=== PATIENT | male | born 1945 | race Caucasian/White ===

== ENCOUNTER 2020-10-21 05:50 | Day surgery (SDC) | payer MEDICARE ==
[~2020-10-21] VITALS: Ht 175.3 cm; Wt 86.2 kg
[~2020-10-21 05:50] MED LIST: BACTROBAN2 % EX; CEPHALEXIN500 MG OR; NAPROSYN500 MG OR; NO MEDS; PROTONIX40 M2 PO
[2020-10-21 07:56] VITALS: BP 155/88
== END 2020-10-21 08:05 | disposition home or self-care (01) ==
LOC: ENDO 05:50 → ORM 08:00 → ENDO 08:05 → ORM 11:45
PROVIDERS: ATTEND Surgery
PROC: 0DBF8ZX Excision of Right Large Intestine, Via Natural or Artificial Opening Endoscopic, Diagnostic (ICD-10-PCS; principal; 2020-10-21)
PROC: 0DBN8ZX Excision of Sigmoid Colon, Via Natural or Artificial Opening Endoscopic, Diagnostic (ICD-10-PCS; 2020-10-21)
PROC: 0DBL8ZX Excision of Transverse Colon, Via Natural or Artificial Opening Endoscopic, Diagnostic (ICD-10-PCS; 2020-10-21)
PROC: 0DB18ZX Excision of Upper Esophagus, Via Natural or Artificial Opening Endoscopic, Diagnostic (ICD-10-PCS; 2020-10-21)
PROC: 0DB48ZX Excision of Esophagogastric Junction, Via Natural or Artificial Opening Endoscopic, Diagnostic (ICD-10-PCS; 2020-10-21)
DX: Z12.11 Encounter for screening for malignant neoplasm of colon (principal); K57.30 Diverticulosis of large intestine without perforation or abscess without bleeding; D12.3 Benign neoplasm of transverse colon; D12.2 Benign neoplasm of ascending colon; D12.5 Benign neoplasm of sigmoid colon; K63.5 Polyp of colon; K21.9 Gastro-esophageal reflux disease without esophagitis; K44.9 Diaphragmatic hernia without obstruction or gangrene; K22.70 Barrett's esophagus without dysplasia; Z87.891 Personal history of nicotine dependence

== ENCOUNTER 2021-12-24 10:42 | Day surgery (SDC) | payer MEDICARE ==
[~2021-12-24] VITALS: Ht 175.3 cm; Wt 88.5 kg
[2021-12-24 13:49] VITALS: BP 125/84
== END 2021-12-24 14:10 | disposition home or self-care (01) ==
LOC: ENDO 10:42
PROVIDERS: ATTEND Surgery
PROC: 0DBM8ZX Excision of Descending Colon, Via Natural or Artificial Opening Endoscopic, Diagnostic (ICD-10-PCS; principal; 2021-12-24)
PROC: 0DBL8ZX Excision of Transverse Colon, Via Natural or Artificial Opening Endoscopic, Diagnostic (ICD-10-PCS; 2021-12-24)
DX: Z12.11 Encounter for screening for malignant neoplasm of colon (principal); D12.3 Benign neoplasm of transverse colon; D12.4 Benign neoplasm of descending colon; K63.5 Polyp of colon; K57.30 Diverticulosis of large intestine without perforation or abscess without bleeding; K21.9 Gastro-esophageal reflux disease without esophagitis; Z87.891 Personal history of nicotine dependence

== ENCOUNTER 2022-05-07 06:12 | Day surgery (SDC) | payer MEDICARE ==
[~2022-05-07] VITALS: Ht 175.3 cm; Wt 84.9 kg
[~2022-05-07 06:12] MED LIST changes: +PRAVASTATIN20 MG PO
[2022-05-07 09:33] VITALS: BP 136/75
== END 2022-05-07 09:18 | disposition home or self-care (01) ==
LOC: ORM 06:12
PROVIDERS: ATTEND Urology
PROC: 0VB03ZX Excision of Prostate, Percutaneous Approach, Diagnostic (ICD-10-PCS; principal; 2022-05-07)
PROC: BV49ZZZ Ultrasonography of Prostate and Seminal Vesicles (ICD-10-PCS; 2022-05-07)
DX: N40.1 Benign prostatic hyperplasia with lower urinary tract symptoms (principal); N13.8 Other obstructive and reflux uropathy; K21.9 Gastro-esophageal reflux disease without esophagitis; E78.2 Mixed hyperlipidemia; K59.09 Other constipation; G62.9 Polyneuropathy, unspecified; Z87.891 Personal history of nicotine dependence; Z86.010 Personal history of colon polyps

== ENCOUNTER 2022-05-10 04:06 | Inpatient (IN) | payer MEDICARE ==
[2022-05-10] VITALS (30 sets, daily range): BP systolic 87–139; BP diastolic 49–80
[~2022-05-10] VITALS: Ht 175.3 cm; Wt 83.4 kg
[2022-05-10 04:46] LABS: IMMATURE GRANULOCYTES 0.3 % (0.0-5.0); MEAN CELL VOLUME 88.6 fL CALC (80.0-100.0); NEUT# 8.44 thou/uL (1.82-7.42); RED BLOOD COUNT 4.13 mill/uL (4.70-6.10); RED CELL DISTRI WIDTH 13.8 % (11.5-15.5)
[2022-05-10 04:47] LABS: HEMATOCRIT 36.6 % (39.0-50.0); HEMOGLOBIN 12.8 g/dl (14.0-18.0)
[2022-05-10 05:01] LABS: ALBUMIN 3.4 g/dL (3.2-5.0); ALKALINE PHOSPHATASE 78 u/l (38-126); ANION GAP 11 (6-22 (CALC)); BILIRUBIN, TOTAL 1.3 mg/dL (0.0-1.4); BUN 12 mg/dL (8-23); BUN/CREATININE RATIO 16 (12-20 (CALC)); CHLORIDE 107 mmol/l (95-108); CREATININE 0.7 mg/dL (0.7-1.3); GFR FOR AFR.AMER. > 60 ML/MIN (>=60 (CALC)); GFR OTHER RACES > 60 ML/MIN (>=60 (CALC)); POTASSIUM 3.6 mmol/l (3.5-5.1); SGOT/AST 27 u/l (19-48); SODIUM 135 mmol/l (137-146); TOTAL PROTEIN 6.4 g/dL (6.3-8.2)
[2022-05-10 05:02] LABS: CARBON DIOXIDE 21 mmol/l (22-30)
[2022-05-10 05:15] LABS: URINE BLOOD DIPSTICK MODERATE (NEGATIVE); URINE COLOR YELLOW; URINE GLUCOSE - DIPSTICK NEGATIVE (NEGATIVE); URINE KETONE 40 mg/dL (NEGATIVE); URINE PROTEIN - DIPSTICK 30 mg/dL (NEG-TRACE); URINE SPECIFIC GRAVITY >=1.030
[2022-05-10 05:31] LABS: URINE BILIRUBIN - DIPSTICK NEGATIVE (NEGATIVE); URINE LEUK ESTERASE MODERATE (NEGATIVE); URINE NITRITE - DIPSTICK POSITIVE (Negative); URINE RBC 25-50 RBC/hpf (0-5); URINE WBC 50-100 WBC/hpf (0-5)
[2022-05-10 05:32] LABS: URINE BACTERIA MANY hpf; URINE EPITHELIAL CELLS FEW EPI/hpf (0-FEW)
[2022-05-10] MEDS ORDERED: CIPROFLOXACN500 MG PO (08:51)
[2022-05-10] MEDS ORDERED: METRONIDAZOLE500 MG PO (08:51)
[2022-05-10] MEDS ORDERED: ZOFRAN4 MG/TAB PO (08:51)
[2022-05-11 00:39] VITALS: BP 126/80
[2022-05-11 06:11] VITALS: BP 111/63
[2022-05-11 07:14] LABS: HEMATOCRIT 36.3 % (39.0-50.0); HEMOGLOBIN 12.5 g/dl (14.0-18.0); IMMATURE GRANULOCYTES 0.1 % (0.0-5.0); MEAN CELL VOLUME 90.5 fL CALC (80.0-100.0); MEAN CORPUSCULAR HGB 31.2 pG CALC (26.0-32.0); MEAN CORPUSCULAR HGB CONC 34.4 g/dL CAL (32.0-36.0); NEUT# 6.71 thou/uL (1.82-7.42); RED BLOOD COUNT 4.01 mill/uL (4.70-6.10)
[2022-05-11 07:37] LABS: ALBUMIN 3.2 g/dL (3.2-5.0); ALKALINE PHOSPHATASE 83 u/l (38-126); ANION GAP 11 (6-22 (CALC)); BILIRUBIN, TOTAL 0.9 mg/dL (0.0-1.4); BUN 8 mg/dL (8-23); BUN/CREATININE RATIO 10 (12-20 (CALC)); CARBON DIOXIDE 25 mmol/l (22-30); CHLORIDE 105 mmol/l (95-108); CREATININE 0.8 mg/dL (0.7-1.3); GFR FOR AFR.AMER. > 60 ML/MIN (>=60 (CALC)); GFR OTHER RACES > 60 ML/MIN (>=60 (CALC)); POTASSIUM 4.2 mmol/l (3.5-5.1); SGOT/AST 28 u/l (19-48); SODIUM 137 mmol/l (137-146); TOTAL PROTEIN 6.2 g/dL (6.3-8.2)
[2022-05-11 15:31] VITALS: BP 148/89
[2022-05-11 19:00] VITALS: BP 112/74
[2022-05-11 19:15] VITALS: BP 112/74
[2022-05-12] VITALS (8 sets, daily range): BP systolic 112–134; BP diastolic 69–80
[2022-05-12 05:46] LABS: HEMATOCRIT 37.2 % (39.0-50.0); HEMOGLOBIN 12.9 g/dl (14.0-18.0); IMMATURE GRANULOCYTES 0.2 % (0.0-5.0); MEAN CELL VOLUME 89.2 fL CALC (80.0-100.0); MEAN CORPUSCULAR HGB 30.9 pG CALC (26.0-32.0); MEAN CORPUSCULAR HGB CONC 34.7 g/dL CAL (32.0-36.0); NEUT# 6.62 thou/uL (1.82-7.42); RED BLOOD COUNT 4.17 mill/uL (4.70-6.10); RED CELL DISTRI WIDTH 13.8 % (11.5-15.5)
[2022-05-12 06:12] LABS: ALKALINE PHOSPHATASE 108 u/l (38-126); ANION GAP 8 (6-22 (CALC)); BILIRUBIN, TOTAL 0.9 mg/dL (0.0-1.4); BUN 7 mg/dL (8-23); BUN/CREATININE RATIO 10 (12-20 (CALC)); CARBON DIOXIDE 26 mmol/l (22-30); CHLORIDE 104 mmol/l (95-108); CREATININE 0.7 mg/dL (0.7-1.3); GFR FOR AFR.AMER. > 60 ML/MIN (>=60 (CALC)); GFR OTHER RACES > 60 ML/MIN (>=60 (CALC)); POTASSIUM 3.5 mmol/l (3.5-5.1); SGOT/AST 35 u/l (19-48); SODIUM 135 mmol/l (137-146); TOTAL PROTEIN 6.1 g/dL (6.3-8.2)
[2022-05-13] VITALS: BP 132/71
[2022-05-13 00:04] VITALS: BP 132/71
[2022-05-13 04:00] VITALS: BP 132/79
[2022-05-13 05:59] LABS: HEMATOCRIT 35.6 % (39.0-50.0); HEMOGLOBIN 12.4 g/dl (14.0-18.0); IMMATURE GRANULOCYTES 0.6 % (0.0-5.0); MEAN CORPUSCULAR HGB CONC 34.8 g/dL CAL (32.0-36.0); NEUT# 4.55 thou/uL (1.82-7.42); RED CELL DISTRI WIDTH 13.8 % (11.5-15.5)
[2022-05-13 06:23] LABS: ALBUMIN 3.2 g/dL (3.2-5.0); ALKALINE PHOSPHATASE 117 u/l (38-126); BILIRUBIN, TOTAL 0.7 mg/dL (0.0-1.4); BUN 10 mg/dL (8-23); BUN/CREATININE RATIO 15 (12-20 (CALC)); CARBON DIOXIDE 28 mmol/l (22-30); CHLORIDE 108 mmol/l (95-108); CREATININE 0.7 mg/dL (0.7-1.3); GFR FOR AFR.AMER. > 60 ML/MIN (>=60 (CALC)); GFR OTHER RACES > 60 ML/MIN (>=60 (CALC)); MAGNESIUM 2.4 mg/dL (1.6-2.3); POTASSIUM 3.6 mmol/l (3.5-5.1); SGOT/AST 37 u/l (19-48); TOTAL PROTEIN 6.3 g/dL (6.3-8.2)
[2022-05-13 06:32] LABS: ANION GAP 11 (6-22 (CALC)); SODIUM 143 mmol/l (137-146)
[2022-05-13 06:50] VITALS: BP 112/70
[2022-05-13 10:49] VITALS: BP 134/82
[2022-05-13] MEDS ORDERED: METRONIDAZOLE500 MG PO (11:14)
[2022-05-13] MEDS ORDERED: LEVAQUIN750 M1 PO (11:15)
[2022-05-13 14:15] VITALS: BP 115/73
== END 2022-05-13 15:55 | disposition home or self-care (01) | DRG 863 ==
LOC: ED 04:06 → ED-I 04:35 → ED 09:16 → MS2 09:17
PROVIDERS: Emergency Medicine; Nurse Practitioner Family; ADMIT Internal Medicine; ATTEND Internal Medicine
PROC: 0T9B70Z Drainage of Bladder with Drainage Device, Via Natural or Artificial Opening (ICD-10-PCS; principal; 2022-05-10)
DX: T81.40XA Infection following a procedure, unspecified, initial encounter (principal); N39.0 Urinary tract infection, site not specified; K57.32 Diverticulitis of large intestine without perforation or abscess without bleeding; R78.81 Bacteremia; N41.9 Inflammatory disease of prostate, unspecified; R33.9 Retention of urine, unspecified; I95.9 Hypotension, unspecified; K21.9 Gastro-esophageal reflux disease without esophagitis; E78.5 Hyperlipidemia, unspecified; R97.20 Elevated prostate specific antigen [PSA]; B96.20 Unspecified Escherichia coli [E. coli] as the cause of diseases classified elsewhere; Y84.8 Other medical procedures as the cause of abnormal reaction of the patient, or of later complication, without mention of misadventure at the time of the procedure; Z98.890 Other specified postprocedural states
CPT/HCPCS: G0378; J0692; J1650; Q9967

== ENCOUNTER 2022-05-13 21:11 | Observation (INO) | payer MEDICARE ==
[~2022-05-13] VITALS: Ht 175.3 cm; Wt 85.0 kg
[~2022-05-13 21:11] MED LIST changes: +CIPROFLOXACN500 MG PO; +LEVAQUIN750 M1 PO; +METRONIDAZOLE500 MG PO; +ZOFRAN4 MG/TAB PO
[2022-05-13 21:43] VITALS: BP 102/63
[2022-05-13 22:00] VITALS: BP 95/63
[2022-05-13 22:26] LABS: HEMATOCRIT 37.4 % (39.0-50.0); HEMOGLOBIN 13.2 g/dl (14.0-18.0); IMMATURE GRANULOCYTES 1.5 % (0.0-5.0); MEAN CELL VOLUME 86.6 fL CALC (80.0-100.0); MEAN CORPUSCULAR HGB 30.6 pG CALC (26.0-32.0); MEAN CORPUSCULAR HGB CONC 35.3 g/dL CAL (32.0-36.0); NEUT# 11.48 thou/uL (1.82-7.42); RED BLOOD COUNT 4.32 mill/uL (4.70-6.10); RED CELL DISTRI WIDTH 13.6 % (11.5-15.5)
[2022-05-13 22:38] LABS: ALBUMIN 3.2 g/dL (3.2-5.0); BUN 12 mg/dL (8-23); BUN/CREATININE RATIO 18 (12-20 (CALC)); CHLORIDE 104 mmol/l (95-108); CREATININE 0.7 mg/dL (0.7-1.3); GFR FOR AFR.AMER. > 60 ML/MIN (>=60 (CALC)); GFR OTHER RACES > 60 ML/MIN (>=60 (CALC)); MAGNESIUM 1.9 mg/dL (1.6-2.3); POTASSIUM 3.2 mmol/l (3.5-5.1); SODIUM 136 mmol/l (137-146)
[2022-05-13 22:42] LABS: ALKALINE PHOSPHATASE 250 u/l (38-126); ANION GAP 13 (6-22 (CALC)); CARBON DIOXIDE 22 mmol/l (22-30); SGOT/AST 200 u/l (19-48)
[2022-05-13 23:04] LABS: URINE BILIRUBIN - DIPSTICK NEGATIVE (NEGATIVE); URINE BLOOD DIPSTICK MODERATE (NEGATIVE); URINE COLOR YELLOW; URINE GLUCOSE - DIPSTICK NEGATIVE (NEGATIVE); URINE KETONE NEGATIVE (NEGATIVE); URINE LEUK ESTERASE NEGATIVE (NEGATIVE); URINE PROTEIN - DIPSTICK NEGATIVE (NEG-TRACE); URINE SPECIFIC GRAVITY <=1.005; URINE UROBILINOGEN - DIPSTICK 0.2 E.U./dL (0.2)
[2022-05-13 23:13] LABS: URINE NITRITE - DIPSTICK NEGATIVE (Negative)
[2022-05-13 23:15] LABS: URINE SQUAMOUS EPITHELIAL CELL FEW EPI/hpf (0-FEW); URINE WBC 0-2 WBC/hpf (0-5)
--- NOTE | 2022-05-14 00:40 | NUR ---
PT ARRIVED TO [facility] ROOM 279. REPORT RECIEVED FROM ER NURSE. PT A/OX3. RESPIRATIONS EVEN AND UNLABORED ON ROOM AIR. LUNG SOUNDS YINA.R HEART RHYTHM NORMAL. BOWEL SOUNDS ACTIVE. #20G LFA INFUSING WITH IVF PER ORDER. SKIN INTACT. CHING CATH NOTED FROM PREVIOUS ADMISSION, DRAINING PER GRAVITY. PT DENIES OF PAIN OR DISCOMFORTS AT THIS TIME.PT ORIENTED TO ROOM AND CALL LIGHT SYSTEM. ALL SAFTEY PRECAUTIONS ARE IN PLACE WITH CALL LIGHT IN REACH.
[2022-05-14 00:49] VITALS: BP 101/74
--- NOTE | 2022-05-14 00:53 | NUR ---
900ML URINE OUTPUT FROM CHING BAG, CHING BAG EMPTIED. PT IN NAD, A&OX4, VSS. REPORT GIVEN TO SUJEY BASS. PT UPDATED ON PLAN OF CARE.
--- NOTE | 2022-05-14 00:53 | NUR ---
NO LUMBAR PUNCTURE OR NEB TX DONE, UNABLE TO DOCUMENT NOT DONE PER PROVIDER ON FLOWSHEET.
[2022-05-14 04:20] VITALS: BP 110/69
--- NOTE | 2022-05-14 04:21 | NUR ---
PT SLEEPING IN SEMI FOWLERS FOWLERS POSITION. RESPIRATIONS EVEN AND UNLABORED ON ROOM AIR. IV NOTED. CHING CATH DRAINING PER GRAVITY. NO SIGNS OF ANY DISTRESS. ALL SAFTEY PRECAUTIONS ARE IN PLACE WITH CALL LIGHT IN REACH.
[2022-05-14 07:07] VITALS: BP 98/67
--- NOTE | 2022-05-14 07:33 | NUR ---
PT RESTING IN HIGH FOWLERS POSITION.FLEXIBLE BABYSITTER/OX3 ASSESSMENT AND VS COMPLETED. HEART RHYTHM NOT ON TELE. RESPIRATIONS ROOM AIR. IV SITE NOTED TO LFA S.L . PT URINARY CATH IN PLACE. ALL SAFETY PRECAUTIONS IN PLACE CALL LIGHT INREACH.
--- NOTE | 2022-05-14 07:57 | NUR ---
PT TRANSFERED TO ULTRASOUND PER VOLUNTEER.
--- NOTE | 2022-05-14 09:07 | NUR ---
CALLED IN A PHYSICIAN CONSULT FOR DR GIBSON. I SPOKE WITH TANISHA AT 0907 HRS.
--- NOTE | 2022-05-14 13:48 | NUR ---
PT RESTING IN LOW FOWLERS POSITION PT DENIES ADDITIONAL NEEDS AT THE TIEM ALL SAFETY PRECAUTIONS IN PLACE CALL LIGHT INR EACH.
[2022-05-14 15:29] VITALS: BP 128/76
[2022-05-14 15:42] VITALS: BP 128/78
--- NOTE | 2022-05-14 17:18 | NUR ---
PT RESTING IN LOW FOWLERS POSITION PT DENIES ADDITIONAL NEEDS AT THE TIME ALL SAFETY PRECAUTIONS IN PLACE CALL LIGHT INREACH.
--- NOTE | 2022-05-14 18:45 | NUR ---
RECEIVED REPORT FROM XENIA ARAMBULA.
[2022-05-14 18:59] VITALS: BP 139/80
--- NOTE | 2022-05-14 20:20 | NUR ---
PT RESTING ON BED SEMI FOWLERS: A&O X3. EVEN AND UNLABORED RESPIRATIONS; CLEAR LUNG SOUNDS UPON AUSCULTATION. IV SITE FLUSHED: #20G TO LEFT FA, HEALTHY AND PATENT. ACTIVE BOWEL SOUNDS X4 QUADRANTS. CHING IN PLACE: TO GRAVITY WITH CLEAR, YELLOW URINE. NO DISTRESS NOTED. PTDENIES PAIN AT THIS TIME. SAFETY PRECAUTIONS IN PLACE WITH CALL LIGHT IN REACH.
--- NOTE | 2022-05-15 00:05 | NUR ---
PT RESTING ON BED WITH EYES CLOSED. NO DISTRESS OR PAIN NOTED. IV SITE HEALTHY AND PATENT INFUSING FLUIDS PER ORDER. EMPTIED CHING CONTENTS: 850 CC OF CLEAR, YELLOW URINE. SAFETY PRECAUTIONS IN PLACE WITH CALL LIGHT IN REACH.
[2022-05-15 04:07] VITALS: BP 138/79
--- NOTE | 2022-05-15 04:33 | NUR ---
PT RESTING WITH EYES CLOSED. NO DISTRESS OR PAIN NOTED. IV SITE HEALTHY AND PATENT INFUSING FLUIDS PER ORDER. CHING IN PLACE: TO GRAVITY WITH CLEAR, YELLOW URINE. SAFETY PRECAUTIONS IN PLACE WITH CALL LIGHT IN REACH.
[2022-05-15 05:50] LABS: HEMATOCRIT 34.4 % (39.0-50.0); IMMATURE GRANULOCYTES 1.2 % (0.0-5.0); MEAN CELL VOLUME 88.4 fL CALC (80.0-100.0); MEAN CORPUSCULAR HGB 30.8 pG CALC (26.0-32.0); MEAN CORPUSCULAR HGB CONC 34.9 g/dL CAL (32.0-36.0); NEUT# 6.08 thou/uL (1.82-7.42); RED BLOOD COUNT 3.89 mill/uL (4.70-6.10); RED CELL DISTRI WIDTH 13.8 % (11.5-15.5)
[2022-05-15 06:07] LABS: ALBUMIN 2.8 g/dL (3.2-5.0); ALKALINE PHOSPHATASE 145 u/l (38-126); BUN 11 mg/dL (8-23); BUN/CREATININE RATIO 19 (12-20 (CALC)); CARBON DIOXIDE 25 mmol/l (22-30); CHLORIDE 110 mmol/l (95-108); CREATININE 0.6 mg/dL (0.7-1.3); GFR FOR AFR.AMER. > 60 ML/MIN (>=60 (CALC)); GFR OTHER RACES > 60 ML/MIN (>=60 (CALC)); SGOT/AST 101 u/l (19-48); SODIUM 137 mmol/l (137-146); TOTAL PROTEIN 5.6 g/dL (6.3-8.2)
[2022-05-15 06:10] LABS: ANION GAP 6 (6-22 (CALC)); BILIRUBIN, TOTAL 0.4 mg/dL (0.0-1.4)
[2022-05-15 06:48] VITALS: BP 138/79
--- NOTE | 2022-05-15 07:43 | NUR ---
PT RESTING IN SEMI FOWLERS POSITION.PT ASSESSMENT AND VS COMPLETED. HEART RHYTHM NORM. RESPIRATIONS ON ROOM AIR .PT IV SITE NOTED WITH NS INFUSING.PT CHING CATHETER IN PALCE . YELLOW CLEAR URINE NOTED DRAINING TO GRAVITY. PT DENIES ADDITIONAL NEEDS AT THE TIME ALL SAFETY PRECAUTIONS IN PLACE CALL LIGHT INREACH.
--- NOTE | 2022-05-15 09:00 | NUR ---
PROVIDERS ORDERS ON REMOVAL OF CHING CATH. PT TO BE EDUCATED ON THE NEED OR URINATION PRIOR DC. IF PT RETAINS URINE CHING CATH TO BE PUT BACK IN PLACE .
[2022-05-15] MEDS ORDERED: TAMSULOSIN HCL0.4 MG PO (09:01)
--- NOTE | 2022-05-15 10:04 | NUR ---
PT CHING CATHETER REMOVED, PT EDUCATED NEED OF URINATION PT HELPED TO CHAIR. PT WILL USE CALL LIGHT TO VERIFY URINATION IN URINAL.
--- NOTE | 2022-05-15 11:41 | NUR ---
PT URINAL 150ML OF URINE. PT STATED LARGE BM . PT STATES READY TO GO HOME.
--- NOTE | 2022-05-15 12:14 | NUR ---
Discharge instructions given. Patient verbalizes understanding of same. Discharged in stable condition via Wheelchair to Home with staff. All belongings sent with pt. IV REMOVED .
== END 2022-05-15 12:12 | disposition home or self-care (01) ==
LOC: ED 21:11 → ED-I 23:27 → ED 23:40 → MS2 23:41
PROVIDERS: Family Medicine; Nurse Practitioner Family; ADMIT Internal Medicine; ATTEND Internal Medicine
DX: R50.9 Fever, unspecified (principal); N40.1 Benign prostatic hyperplasia with lower urinary tract symptoms; R33.8 Other retention of urine; R97.20 Elevated prostate specific antigen [PSA]; K80.20 Calculus of gallbladder without cholecystitis without obstruction; E78.5 Hyperlipidemia, unspecified; K21.9 Gastro-esophageal reflux disease without esophagitis; Z98.890 Other specified postprocedural states

== ENCOUNTER 2022-05-31 21:26 | Emergency (ER) | payer MEDICARE ==
[2022-05-31] VITALS (8 sets, daily range): BP systolic 104–121; BP diastolic 69–79
[~2022-05-31] VITALS: Ht 175.3 cm; Wt 85.0 kg
[~2022-05-31 21:26] MED LIST changes: +TAMSULOSIN HCL0.4 MG PO
[2022-05-31 22:12] LABS: BASO% 0.3 % (0-3); EOS% 0.7 % (0-8); HEMATOCRIT 38.9 % (39.0-50.0); HEMOGLOBIN 13.5 g/dl (14.0-18.0); IMMATURE GRANULOCYTES 0.1 % (0.0-5.0); LYMPH% 3.3 % (15-41); MEAN CELL VOLUME 89.2 fL CALC (80.0-100.0); MEAN CORPUSCULAR HGB CONC 34.7 g/dL CAL (32.0-36.0); MONO% 0.4 % (2-13); NEUT# 6.39 thou/uL (1.82-7.42); NEUT% 95.2 % (42-76); RED BLOOD COUNT 4.36 mill/uL (4.70-6.10); RED CELL DISTRI WIDTH 14.4 % (11.5-15.5)
[2022-05-31 22:24] LABS: ALBUMIN 3.7 g/dL (3.2-5.0); ALKALINE PHOSPHATASE 73 u/l (38-126); ANION GAP 10 (6-22 (CALC)); BILIRUBIN, TOTAL 1.2 mg/dL (0.0-1.4); BUN 13 mg/dL (8-23); BUN/CREATININE RATIO 19 (12-20 (CALC)); CARBON DIOXIDE 23 mmol/l (22-30); CHLORIDE 111 mmol/l (95-108); CREATININE 0.7 mg/dL (0.7-1.3); GFR FOR AFR.AMER. > 60 ML/MIN (>=60 (CALC)); GFR OTHER RACES > 60 ML/MIN (>=60 (CALC)); POTASSIUM 3.8 mmol/l (3.5-5.1); SGOT/AST 38 u/l (19-48); SODIUM 139 mmol/l (137-146); TOTAL PROTEIN 7.1 g/dL (6.3-8.2)
[2022-05-31 22:36] LABS: MYOGLOBIN 23 ng/mL (0 - 121)
[2022-05-31 23:39] LABS: URINE BILIRUBIN - DIPSTICK NEGATIVE (NEGATIVE); URINE BLOOD DIPSTICK TRACE-INTACT (NEGATIVE); URINE COLOR YELLOW; URINE GLUCOSE - DIPSTICK NEGATIVE (NEGATIVE); URINE KETONE NEGATIVE (NEGATIVE); URINE LEUK ESTERASE NEGATIVE (NEGATIVE); URINE NITRITE - DIPSTICK NEGATIVE (Negative); URINE PROTEIN - DIPSTICK NEGATIVE (NEG-TRACE); URINE SPECIFIC GRAVITY 1.025; URINE UROBILINOGEN - DIPSTICK 0.2 E.U./dL (0.2)
[2022-06-01 00:04] VITALS: BP 104/69
== END 2022-06-01 00:18 | disposition home or self-care (01) ==
LOC: ED 21:26
PROVIDERS: Family Medicine
DX: B34.9 Viral infection, unspecified (principal); Z20.822 Contact with and (suspected) exposure to COVID-19; R53.1 Weakness

== ENCOUNTER 2024-08-09 16:04 | Emergency (ER) | payer MEDICARE ==
[~2024-08-09] VITALS: Ht 175.3 cm; Wt 87.0 kg
[2024-08-09] VITALS (17 sets, daily range): BP systolic 103–130; BP diastolic 71–95
[2024-08-09 16:36] LABS: BASO% 0.6 % (0-3); EOS% 3.1 % (0-8); HEMATOCRIT 47.6 % (39.0-50.0); IMMATURE GRANULOCYTES 0.1 % (0.0-5.0); LYMPH% 16.7 % (15-41); MEAN CELL VOLUME 86.9 fL CALC (80.0-100.0); MEAN CORPUSCULAR HGB 29.2 pG CALC (26.0-32.0); MEAN CORPUSCULAR HGB CONC 33.6 g/dL CAL (32.0-36.0); MONO% 6.9 % (2-13); NEUT# 6.27 thou/uL (1.82-7.42); NEUT% 72.6 % (42-76); RED BLOOD COUNT 5.48 mill/uL (4.70-6.10); RED CELL DISTRI WIDTH 13.8 % (11.5-15.5)
[2024-08-09 16:55] LABS: ALBUMIN 4.5 g/dL (3.2-5.0); ALKALINE PHOSPHATASE 73 u/l (38-126); ANION GAP 13 (6-22 (CALC)); BILIRUBIN, TOTAL 0.8 mg/dL (0.2-1.3); BUN 11 mg/dL (8-23); BUN/CREATININE RATIO 14 (12-20 (CALC)); CALCULATED LDLCHOLESTEROL 58 mg/dL (62-129 (CALC)); CARBON DIOXIDE 24 mmol/l (22-30); CHLORIDE 108 mmol/l (95-108); CHOLESTEROL HDL RATIO 2.4 (<4.4 (CALC)); CREATININE 0.8 mg/dL (0.7-1.3); D-DIMER 0.3 mg/L (0.19-0.60); ESTIMATED GFR 90 ML/MIN (>=90 (CALC)); HDL CHOLESTEROL 64 mg/dL (39.0-59.0); POTASSIUM 4.2 mmol/l (3.5-5.1); SGOT/AST 31 u/l (19-48); SODIUM 141 mmol/l (137-146); TOTAL CHOLESTEROL 149 mg/dl (0-199); TOTAL PROTEIN 7.7 g/dL (6.3-8.2); TOTAL TRIGLYCERIDES 138 mg/dl (0-149); VLDL CHOLESTROL 28 mg/dl (0-38 (CALC))
[2024-08-09 20:01] LABS: URINE BILIRUBIN - DIPSTICK Negative (NEGATIVE); URINE BLOOD DIPSTICK Trace-intact (NEGATIVE); URINE COLOR Yellow; URINE GLUCOSE - DIPSTICK Negative (NEGATIVE); URINE KETONE Negative (NEGATIVE); URINE LEUK ESTERASE Trace (NEGATIVE); URINE NITRITE - DIPSTICK Positive (Negative); URINE PROTEIN - DIPSTICK 100 mg/dL (NEG-TRACE); URINE SPECIFIC GRAVITY 1.025; URINE UROBILINOGEN - DIPSTICK 0.2 E.U./dL (0.2)
[2024-08-09 20:07] LABS: URINE BACTERIA MANY hpf; URINE HYALINE CAST FEW lpf (NONE-RARE); URINE RBC 0-2 RBC/hpf (0-5)
[2024-08-09 20:08] LABS: URINE COARSE GRANULAR CAST FEW lpf
[2024-08-09] MEDS ORDERED: PLAVIX75 MG PO (20:39)
[2024-08-09] MEDS ORDERED: CLOPIDOGREL BISULFATE 75 MG/TAB TAB PO ONE (20:40)
[2024-08-11] MEDS ORDERED: BACTRIM DS1 TAB PO (08:52)
== END 2024-08-09 21:10 | disposition home or self-care (01) ==
LOC: ED 16:04
PROVIDERS: Emergency Medicine
DX: R53.1 Weakness (principal); R82.71 Bacteriuria; K21.9 Gastro-esophageal reflux disease without esophagitis; Z98.890 Other specified postprocedural states; Z87.440 Personal history of urinary (tract) infections; Z79.82 Long term (current) use of aspirin
CPT/HCPCS: J1100; Q9967